=== PATIENT | female | born 1955 | race Caucasian/White ===

== ENCOUNTER 2020-11-06 21:36 | Emergency (ER) | payer MEDICARE, BC ==
[~2020-11-06 21:36] MED LIST: FISH OIL 1,0001 EAC5 PO
[2020-11-07 00:20] LABS: HEMOGLOBIN 14.2 gm/dl (12.3-15.3); RED BLOOD COUNT 4.46 M/UL (4.00-5.10); WHITE BLOOD COUNT 8.6 K/UL (4.5-11.0)
== END 2020-11-07 02:55 | disposition home or self-care (01) ==
LOC: ER1 21:36
PROVIDERS: Emergency Medicine
DX: Z04.3 Encounter for examination and observation following other accident (principal); R42 Dizziness and giddiness; Z95.1 Presence of aortocoronary bypass graft
CPT/HCPCS: 70450; 71045; 80053; 82550; 82553; 83874; 84484; 85025; 93005; 99284

== ENCOUNTER → 2020-12-17 | Outpatient (CLI) | payer MEDICARE, BC ==
[~2020-12-17] MED LIST changes: +CELEBREX 200MG200 MG PO; +CLARITIN10 M2 PO; +CLONAZEPAM1 MG PO; +CRESTOR10 MG PO; +ESTRACE42.5 GM VG; +FLONASE 0.05% N16 GM; +ISOSORBIDE MONO30 MG PO; +LEVOTHYROXINE25 MC1 PO; +LOPRESSOR 25 MG25 MG PO; +NEURONTIN800 MG PO; +PERCOCET 10-321 EACH PO; +PROZAC20 MG PO; +SINEQUAN CAP 5050 MG PO; +SINGULAIR10 MG PO; +URECHOLINE 25 M25 MG PO
== END ==
LOC: HEART 5 08:00
DX: R07.9 Chest pain, unspecified (principal); R94.39 Abnormal result of other cardiovascular function study; I20.9 Angina pectoris, unspecified; I25.10 Atherosclerotic heart disease of native coronary artery without angina pectoris; I25.9 Chronic ischemic heart disease, unspecified
CPT/HCPCS: 78452; 93306; A9502; J2785

== ENCOUNTER 2021-02-06 15:05 | Inpatient (IN) | payer MEDICARE, BC ==
[~2021-02-06] VITALS: Ht 165.1 cm; Wt 79.4 kg
[~2021-02-06 15:05] MED LIST changes: -CELEBREX 200MG200 MG PO; -CLARITIN10 M2 PO; -CLONAZEPAM1 MG PO; -CRESTOR10 MG PO; -ESTRACE42.5 GM VG; -FLONASE 0.05% N16 GM; -ISOSORBIDE MONO30 MG PO; -LEVOTHYROXINE25 MC1 PO; -LOPRESSOR 25 MG25 MG PO; -NEURONTIN800 MG PO; -PERCOCET 10-321 EACH PO; -PROZAC20 MG PO; -SINEQUAN CAP 5050 MG PO; -SINGULAIR10 MG PO; -URECHOLINE 25 M25 MG PO
[2021-02-06 16:22] LABS: HEMOGLOBIN 12.8 gm/dl (12.3-15.3); RED BLOOD COUNT 3.95 M/UL (4.00-5.10); WHITE BLOOD COUNT 10.1 K/UL (4.5-11.0)
[2021-02-07 01:54] LABS: HEMOGLOBIN 10.8 gm/dl (12.3-15.3); RED BLOOD COUNT 3.4 M/UL (4.00-5.10); WHITE BLOOD COUNT 6.7 K/UL (4.5-11.0)
[2021-02-07] MEDS ORDERED: CLONAZEPAM1 MG PO (04:15)
[2021-02-07] MEDS ORDERED: FLONASE 0.05% N16 GM (04:16)
[2021-02-07] MEDS ORDERED: NEURONTIN800 MG PO (04:16)
[2021-02-07] MEDS ORDERED: LOPRESSOR 25 MG25 MG PO (04:17)
[2021-02-07] MEDS ORDERED: PERCOCET 10-321 EACH PO (04:18)
[2021-02-07] MEDS ORDERED: URECHOLINE 25 M25 MG PO (04:19)
[2021-02-07] MEDS ORDERED: ISOSORBIDE MONO30 MG PO (04:19)
[2021-02-07] MEDS ORDERED: SINEQUAN CAP 5050 MG PO (04:20)
[2021-02-07] MEDS ORDERED: CELEBREX 200MG200 MG PO (04:20)
[2021-02-07] MEDS ORDERED: LEVOTHYROXINE25 MC1 PO (04:21)
[2021-02-07] MEDS ORDERED: PROZAC20 MG PO (04:21)
[2021-02-07] MEDS ORDERED: CRESTOR10 MG PO (04:22)
[2021-02-07] MEDS ORDERED: CLARITIN10 M2 PO (04:23)
[2021-02-07] MEDS ORDERED: SINGULAIR10 MG PO (04:24)
[2021-02-07] MEDS ORDERED: ESTRACE42.5 GM VG (04:24)
== END 2021-02-07 18:16 | disposition home or self-care (01) | DRG 287 ==
LOC: ER1 15:05 → CDU 17:19 → PROG CARE 17:19
PROVIDERS: Physician Assistant; ADMIT Internal Medicine
PROC: 4A023N7 Measurement of Cardiac Sampling and Pressure, Left Heart, Percutaneous Approach (ICD-10-PCS; principal; 2021-02-06)
PROC: B2111ZZ Fluoroscopy of Multiple Coronary Arteries using Low Osmolar Contrast (ICD-10-PCS; 2021-02-06)
PROC: B24BZZ4 Ultrasonography of Heart with Aorta, Transesophageal (ICD-10-PCS; 2021-02-07)
DX: R00.1 Bradycardia, unspecified (principal); T44.7X5A Adverse effect of beta-adrenoreceptor antagonists, initial encounter; T44.1X5A Adverse effect of other parasympathomimetics [cholinergics], initial encounter; I10 Essential (primary) hypertension; Z20.822 Contact with and (suspected) exposure to COVID-19; E78.5 Hyperlipidemia, unspecified; I25.119 Atherosclerotic heart disease of native coronary artery with unspecified angina pectoris; R29.6 Repeated falls; G89.29 Other chronic pain; E03.9 Hypothyroidism, unspecified; I08.1 Rheumatic disorders of both mitral and tricuspid valves; I27.20 Pulmonary hypertension, unspecified; F39 Unspecified mood [affective] disorder; F41.9 Anxiety disorder, unspecified; W18.30XA Fall on same level, unspecified, initial encounter; Z95.1 Presence of aortocoronary bypass graft; Y92.009 Unspecified place in unspecified non-institutional (private) residence as the place of occurrence of the external cause; Z90.49 Acquired absence of other specified parts of digestive tract; Z90.710 Acquired absence of both cervix and uterus; Z88.6 Allergy status to analgesic agent; Z82.49 Family history of ischemic heart disease and other diseases of the circulatory system; Z87.440 Personal history of urinary (tract) infections
CPT/HCPCS: ECHO; 0240U; 36415; 70450; 71045; 80048; 80053; 81001; 82550; 82553; 83735; 83874; 83880; 84439; 84443; 84484; 85025; 85027; 85610; 85730; 87086; 93005; 93306; 99152; 99153; 99285; C1769; G0378; J1644; J2250; J3010; J7040; Q9965; Q9967

== ENCOUNTER → 2021-06-23 | Outpatient (CLI) | payer MEDICARE, BC ==
[~2021-06-23] MED LIST changes: +CELEBREX 200MG200 MG PO; +CLARITIN10 M2 PO; +CLONAZEPAM1 MG PO; +CRESTOR10 MG PO; +ESTRACE42.5 GM VG; +FLONASE 0.05% N16 GM; +ISOSORBIDE MONO30 MG PO; +LEVOTHYROXINE25 MC1 PO; +LOPRESSOR 25 MG25 MG PO; +NEURONTIN800 MG PO; +PERCOCET 10-321 EACH PO; +PROZAC20 MG PO; +SINEQUAN CAP 5050 MG PO; +SINGULAIR10 MG PO; +URECHOLINE 25 M25 MG PO
== END ==
LOC: HEART 5 10:21
DX: R06.02 Shortness of breath (principal)
CPT/HCPCS: 94060; 94729

== ENCOUNTER → 2021-06-23 | Outpatient (CLI) | payer MEDICARE, BC ==
[2021-06-24 14:14] LABS: ANTISCLERODERMA-70 ANTIBODIES <0.2 AI (0.0-0.9)
[2021-06-25 18:09] LABS: ANA DIRECT Negative (Negative); ANTIMYELOPEROXIDASE (MPO) ABS <9.0 U/mL (0.0-9.0); ANTIPROTEINASE 3 (PR-3) ABS <3.5 U/mL (0.0-3.5); ATYPICAL PANCA <1:20 titer (Neg:<1:20); CYTOPLASMIC (C-ANCA) <1:20 titer (Neg:<1:20); PERINUCLEAR (P-ANCA) <1:20 titer (Neg:<1:20)
== END ==
LOC: LAB 12:19
PROVIDERS: Internal Medicine Pulmonary Disease
DX: R09.02 Hypoxemia (principal); I27.20 Pulmonary hypertension, unspecified
CPT/HCPCS: 36415; 36600; 82803; 86038; 86200; 86235

== ENCOUNTER → 2021-07-12 | Outpatient (CLI) | payer MEDICARE, BC | LOC: SLEEP 12:16 | DX: G47.33 Obstructive sleep apnea (adult) (pediatric) (principal) | CPT/HCPCS: 95811 ==

== ENCOUNTER → 2021-08-14 | Outpatient (CLI) | payer MEDICARE, BC | LOC: KOH-I 08-01 14:30 | DX: R55 Syncope and collapse (principal); I65.23 Occlusion and stenosis of bilateral carotid arteries | CPT/HCPCS: 93880 ==

== ENCOUNTER → 2021-09-02 | Outpatient (CLI) | payer MEDICARE, BC | LOC: EMI 09-01 14:00 | DX: R26.81 Unsteadiness on feet (principal); R94.02 Abnormal brain scan | CPT/HCPCS: 70553; A9577 ==

== ENCOUNTER → 2021-09-02 | Outpatient (CLI) | payer MEDICARE, BC | LOC: LAB 11:43 | DX: R26.81 Unsteadiness on feet (principal) | CPT/HCPCS: 36415; 82565; 84520 ==

== ENCOUNTER → 2022-02-02 | Outpatient (CLI) | payer MEDICARE, BC | LOC: ECHO 01-28 12:00 | DX: I20.9 Angina pectoris, unspecified (principal); R07.9 Chest pain, unspecified; I11.9 Hypertensive heart disease without heart failure; I08.3 Combined rheumatic disorders of mitral, aortic and tricuspid valves; I27.20 Pulmonary hypertension, unspecified | CPT/HCPCS: ECHO; 93306 ==

== ENCOUNTER → 2022-04-07 | Outpatient (CLI) | payer MEDICARE, BC | LOC: MRI 09:16 | DX: R42 Dizziness and giddiness (principal); I95.1 Orthostatic hypotension; G25.2 Other specified forms of tremor | CPT/HCPCS: 36415; 70553; 82565; 84520; A9577 ==